=== PATIENT | male | born 1985 | race Caucasian/White ===

== ENCOUNTER 2022-08-30 09:25 | Outpatient (AMB) | payer BC, SELFPAY ==
--- NOTE | 2022-08-30 09:25 | MHC.PC.OV ---
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: Patient has dentist HPI f/u ADHD/ HTN HPI Details Patient is a 37 year-old male here today for follow-up visit.? Patient has a past medical history significant for ADHD, mild intermittent asthma. Concerns--> reports over the last several months having low sexual drive. He attributes this to COVID infection. Does report some low energy at times as well. He is interested in checking his testosterone ADHD:? Continues on p.r.n. use of Adderall 10 mg extended release with decent affect. 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 .? Denies any side effects of decreased appetite iron to her insomnia with medication. .? He does report having a stressful home life as he is recently moved and he has 3 young children. .. Asthma:? Has been well controlled with only seldom use of his albuterol inhaler.? Does report times at night having asthma symptoms.? No recent asthma exacerbations. .. Hypertension:? Has discontinued use of lisinopril on his own, blood pressures have been stable with better eating habits and lifestyle changes.? He is not monitoring his blood pressure at home.? ? [facility] Medical History Encounter for medication review Surgical History History of appendectomy History of inguinal hernia repair Family History Father Alive and well Mother Alive and well Social History Housing: House (Pt is in the process of moving. ) Alcohol intake: current Alcohol intake frequency: a few times a month Patient Tobacco Use Status: Never used Tobacco e-Cigarette/Vaping Use: Never Used Second Hand Smoke Exposure: No service: No Current occupational status: employed Cognitive needs: No Hearing needs: No Vision needs: No Questionnaire Thrive Questionnaire Date Thrive assessed: 06/20/22 BOBY-7 AMB Questionnaire BOBY-7 Date BOBY - 7 assessed: 06/20/22 Source: Developed by Drs. Mihir Tracy, Earline Macias, Abisai Zamarripa and colleagues, with an educational latonia from [employer]. ACT Questionnaire In the past 4 weeks, how much of the time did your asthma keep you from getting as much done at work, school or at home?: None of the time During the past 4 weeks, how often have you had shortness of breath?: 1-2 times a week During the past 4 weeks, how often did your asthma symptoms wake you up at night or earlier than usual in the morning?: Not at all During the past 4 weeks, how often have you had to use your rescue inhaler or nebulizer medication?: Not at all How would you rate your asthma control during the past 4 weeks?: Completely controlled ACT Interpretation: Negative Score: 24 Review of Systems Const Denies headache(s) Eyes Denies loss of vision ENT Denies vertigo, Denies dizziness, Denies headache(s) and Denies sore throat Card Denies chest pain, Denies leg edema and Denies lightheadedness Resp Denies cough, Denies hemoptysis and Denies wheezing GI Denies abdominal pain, Denies melena, Denies constipation, Denies diarrhea and Denies vomiting Denies dysuria, Denies urinary frequency and Denies urinary urgency Musc Denies arthralgias, Denies joint swelling, Denies numbness and Denies tingling Neuro Denies Abnormal speech present, Denies behavioral changes, Denies vertigo, Denies dizziness, Denies headache(s), Denies loss of vision, Denies memory loss, Denies numbness and Denies tingling Psych Denies anxiety, Denies behavioral changes, Denies depression, Denies memory loss and Denies panic attacks Miguel/Lymph Denies easy bleeding and Denies easy bruising Aller/Immun Denies wheezing Physical exam (Primary Care) Vital Signs: Last Vital Signs Pulse 84 08/30/22 09:26 BP 132/64 08/30/22 09:26 Pulse Ox 97 08/30/22 09:26 BMI result Body Mass Index 27.3 Tobacco/Smoking Status: Tobacco use Status Tobacco use date assessed 08/30/22 08/30/22 09:29 Patient Tobacco Use Status Never used Tobacco 08/30/22 09:29 e-Cigarette/Vaping Use Never Used 08/30/22 09:29 Thrive Assessment: Date of Thrive Assessment Date Thrive assessed 06/20/22 08/30/22 09:29 Const General: healthy appearing, no acute distress, alert and awake Nutritional Appearance: well nourished Orientation/consciousness: oriented to person, oriented to place and oriented to time HENMT Ears: TM's normal bilaterally General nose exam: Normal nasal mucous membranes and turbinates present Eyes Conjunctivae: conjunctivae normal Sclerae: sclerae normal Pupils: Equal, round and reactive pupils present Neck Neck: Yes no lymphadenopathy and Yes no JVD Thyroid: Thyroid normal Carotids: no bruits Resp Effort & Inspection: normal respiratory effort and not tachypneic Auscultation: no crackles, no rales, no rhonchi and no wheezes Cardio Rate: regular rate Rhythm: regular rhythm Heart sounds: no murmurs and normal S1 and S2 GI Palpation (GI): Soft to palpation, nontender, no hepatomegaly and no splenomegaly Auscultation: normal bowel sounds Skin General skin exam: no rashes or lesions noted and dry skin Neuro General: oriented to person, oriented to place and oriented to time Cranial nerves: Yes Equal, round and reactive pupils present Speech: No Abnormal speech present Gait exam (Neuro): Normal gait present Motor exam (neuro): no tremor noted Extrem Right upper extremity: full ROM Left upper extremity: full ROM Right lower extremity: full ROM; no edema Left lower extremity: full ROM; no edema Psych Mental Status: mental status grossly normal Speech and movement: Normal speech and movement present Affect: normal affect Attitude: cooperative Thought process: Normal thought process present Assessment and Plan Assessment & Plan (1) HTN (hypertension): Code(s): I10 - Essential (primary) hypertension Qualifiers: Hypertension type: primary hypertension Qualified Code(s): I10 - Essential (primary) hypertension Plan: Has discontinued using lisinopril, blood pressure has been stable without medication at this time. Will continue on lifestyle modifications on reducing his weight and salt in his diet. Goal blood pressures to remain below 140/90 (2) ADHD (attention deficit hyperactivity disorder): Code(s): F90.9 - Attention-deficit hyperactivity disorder, unspecified type Qualifiers: Attention deficit-hyperactivity disorder type: unspecified Qualified Code(s): F90.9 - Attention-deficit hyperactivity disorder, unspecified type Plan: Patient reports his ADHD has been stable, feels that his doses somewhat ineffective at times. Will increase his dose to 20 mg extended release (3) Asthma: Code(s): J45.909 - Unspecified asthma, uncomplicated Qualifiers: Asthma severity: mild Asthma persistence: intermittent Asthma complication type: uncomplicated Qualified Code(s): J45.20 - Mild intermittent asthma, uncomplicated Plan: Does report the need to use albuterol inhaler at times specially during warmer weather. Denies any acute exacerbations as of lately. (4) Low libido: Code(s): R68.82 - Decreased libido Plan: He reports he has been experiencing low libido over the last several months. He feels that his has happened before in the past status post COVID infection. Willing to try Viagra product to help with sexual dysfunction. Will test to stops wrong level Orders: Orders Testosterone, Free/Total Today R68.82 - Decreased libido Medications: New dextroamphetamine-amphetamine 20 mg ER (Adderall XR) Partial Fill upon patient request. 20 mg PO DAILY 28 days 28 caps 0RF F90.9 - Attention-deficit hyperactivity disorder, unspecified type sildenafil (Viagra) 100 mg PO DAILY 5 days PRN 5 tabs 0RF sexual activity R68.82 - Decreased libido Refilled albuterol sulfate 90 mcg/actuation 2 puffs PO Q4H 30 days PRN 8.5 grams 2RF shortness of breath or wheezing J45.20 - Mild intermittent asthma, uncomplicated Discontinued dextroamphetamine-amphetamine 10 mg ER (Adderall XR) Discontinued Reason: Doctor's Order 10 mg PO QAM 28 days 28 caps 0RF F90.9 - Attention-deficit hyperactivity disorder, unspecified type lisinopril Discontinued Reason: Doctor's Order 10 mg PO DAILY 90 days 90 tabs 1RF I10 - Essential (primary) hypertension Coding Level of Care Code Est Pt Level 4 (71063) Diagnoses HTN (hypertension) I10 Hypertension type: primary hypertension ADHD (attention deficit hyperactivity disorder) F90.9 Attention deficit-hyperactivity disorder type: unspecified Asthma J45.20 Asthma severity: mild Asthma persistence: intermittent Asthma complication type: uncomplicated Low libido R68.82
[2022-08-30 09:26] VITALS: BP 132/64; PULSE 84; O2SAT 97; BMI 27.3
== END 2022-08-30 09:47 | disposition home or self-care (01) ==
PROVIDERS: PCP Physician Assistant; Visit Provider Physician Assistant
DX: I10 Essential (primary) hypertension (principal); F90.9 Attention-deficit hyperactivity disorder, unspecified type; J45.20 Mild intermittent asthma, uncomplicated; R68.82 Decreased libido
CPT/HCPCS: 99214

== ENCOUNTER 2022-11-30 09:13 | Outpatient (AMB) | payer BC, SELFPAY ==
[2022-11-30 09:26] VITALS: BP 134/98; PULSE 95; RESP 17; O2SAT 97; BMI 27.5
--- NOTE | 2022-11-30 09:26 | A.OFFPC_ITS ---
Vital Signs 11/30/22 09:26 Height 5 ft 11 in Weight 197 lb 6 oz BMI 27.5 BP 134/98 H Blood Pressure Location Lt brachial Position Sitting Respiration 17 Pulse 95 Pulse Source Pulse Oximeter Pulse Oximetry (%) 97 Oxygen Delivery Method Room Air Intake Visit Reasons: f/u ADHD Intake Note: Patient is here to follow up on ADHD. 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 Accompanied by: Self / Same As Patient Allergies Penicillins [PENICILLINS] Allergy (Unknown, Verified 11/30/22 09:52) UNKNOWN Medication List - Last Reconciled 11/30/22 by Diallo Dudley PA-C albuterol sulfate 90 mcg/actuation 2 puffs PO Q4H PRN 30 days blood pressure test kit-large As directed dextroamphetamine-amphetamine 20 mg ER (Adderall XR) 20 mg PO DAILY 28 days sildenafil (Viagra) 100 mg PO DAILY PRN 5 days Tobacco use date assessed: 08/30/22 Dental Screening Dental Screen Date: 11/30/22 Did you have a dental visit in the last 12 months?: No Did you have a dental problem in the last 6 months where you did not have access to dental care?: No Was dental information given to patient?: Patient has dentist HPI f/u ADHD HPI Details Patient is a 37 year-old male here today for follow-up visit.? Patient has a past medical history significant for ADHD, mild intermittent asthma. Concerns--> ADHD:? Continues on p.r.n. use of Adderall 10 mg extended release with decent affect. 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 .? Denies any side effects of decreased appetite iron to her insomnia with medication. .? He does report having a stressful fernando e life as he is recently moved and he has 3 young children. No overt signs of abuse or misuse of the if any medication. SIGN DRUG CONTRACT TODAY- willing to do urine drug screen .. Asthma:? Has been well controlled with only seldom use of his albuterol inhaler.? Does report times at night having asthma symptoms.? No recent asthma exacerbations. .. Hypertension:? Has discontinued use of lisinopril on his own, unfortunately blood pressure elevated today in office. He is willing to restart lisinopril to control blood pressure. Advised to monitor blood pressure at home. [facility] Medical History Encounter for medication review Surgical History History of inguinal hernia repair History of appendectomy Family History Father Alive and well Mother Alive and well Social History Housing: House (Pt is in the process of moving. ) Alcohol intake: current Alcohol intake frequency: a few times a month Patient Tobacco Use Status: Never used Tobacco e-Cigarette/Vaping Use: Never Used Second Hand Smoke Exposure: No service: No Current occupational status: employed Cognitive needs: No Hearing needs: No Vision needs: No Questionnaire Thrive Questionnaire Date Thrive assessed: 06/20/22 BOBY-7 AMB Questionnaire BOBY-7 Date BOBY - 7 assessed: 06/20/22 Source: Developed by Drs. Mihir Tracy, Earline Macias, Abisai Zamarripa and colleagues, with an educational latonia from [employer]. Review of Systems Const Denies headache(s) Eyes Denies loss of vision ENT Denies vertigo, Denies dizziness, Denies headache(s) and Denies sore throat Card Denies chest pain, Denies leg edema and Denies lightheadedness Resp Denies cough, Denies hemoptysis and Denies wheezing GI Denies abdominal pain, Denies melena, Denies constipation, Denies diarrhea and Denies vomiting Denies dysuria, Denies urinary frequency and Denies urinary urgency Musc Denies arthralgias, Denies joint swelling, Denies numbness and Denies tingling Neuro Denies Abnormal speech present, Denies behavioral changes, Denies vertigo, Denies dizziness, Denies headache(s), Denies loss of vision, Denies memory loss, Denies numbness and Denies tingling Psych Denies anxiety, Denies behavioral changes, Denies depression, Denies memory loss and Denies panic attacks Miguel/Lymph Denies easy bleeding and Denies easy bruising Aller/Immun Denies wheezing Physical exam (Primary Care) Vital Signs: Last Vital Signs Pulse 95 11/30/22 09:26 Resp 17 11/30/22 09:26 BP 134/98 H 11/30/22 09:26 Pulse Ox 97 11/30/22 09:26 Oxygen Delivery Method Room Air 11/30/22 09:26 BMI result Body Mass Index 27.5 Tobacco/Smoking Status: Tobacco use Status Tobacco use date assessed 08/30/22 11/30/22 09:28 Patient Tobacco Use Status Never used Tobacco 11/30/22 09:28 e-Cigarette/Vaping Use Never Used 11/30/22 09:28 Thrive Assessment: Date of Thrive Assessment Date Thrive assessed 06/20/22 11/30/22 09:28 Const General: healthy appearing, no acute distress, alert and awake Nutritional Appearance: well nourished Orientation/consciousness: oriented to person, oriented to place and oriented to time HENMT Ears: TM's normal bilaterally General nose exam: Normal nasal mucous membranes and turbinates present Eyes Conjunctivae: conjunctivae normal Sclerae: sclerae normal Pupils: Equal, round and reactive pupils present Neck Neck: Yes no lymphadenopathy and Yes no JVD Thyroid: Thyroid normal Carotids: no bruits Resp Effort & Inspection: normal respiratory effort and not tachypneic Auscultation: no crackles, no rales, no rhonchi and no wheezes Cardio Rate: regular rate Rhythm: regular rhythm Heart sounds: no murmurs and normal S1 and S2 GI Palpation (GI): Soft to palpation, nontender, no hepatomegaly and no splenomegaly Auscultation: normal bowel sounds Skin General skin exam: no rashes or lesions noted and dry skin Neuro General: oriented to person, oriented to place and oriented to time Cranial nerves: Yes Equal, round and reactive pupils present Speech: No Abnormal speech present Gait exam (Neuro): Normal gait present Motor exam (neuro): no tremor noted Extrem Right upper extremity: full ROM Left upper extremity: full ROM Right lower extremity: full ROM; no edema Left lower extremity: full ROM; no edema Psych Mental Status: mental status grossly normal Speech and movement: Normal speech and movement present Affect: normal affect Attitude: cooperative Thought process: Normal thought process present Assessment and Plan Assessment & Plan (1) ADHD (attention deficit hyperactivity disorder): Code(s): F90.9 - Attention-deficit hyperactivity disorder, unspecified type Qualifiers: Attention deficit-hyperactivity disorder type: unspecified Qualified Code(s): F90.9 - Attention-deficit hyperactivity disorder, unspecified type Plan: As per HPI patient continues on Adderall with good affect on his attention and focus. 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 If he he reports no side effects from Adderall medications since as sleeping issues or decreased appetite. No overt signs of misuse or abuse of the medication. Today he signed drug contract and willing to do urine drug screen. (2) HTN (hypertension): Code(s): I10 - Essential (primary) hypertension Qualifiers: Hypertension type: primary hypertension Qualified Code(s): I10 - Essential (primary) hypertension Plan: Patient's blood pressure slightly elevated today in office. Has been on lisinopril which has worked for him in the past. He is willing to restart lisinopril to better control his blood pressure. Advised to monitor blood pressure at home with goal blood pressure to be below 140/90 Orders: Orders Drug Screen Urine Today F90.9 - Attention-deficit hyperactivity disorder, unspe cified type Medications: New lisinopril 10 mg PO DAILY 30 days 30 tabs 2RF I10 - Essential (primary) hypertension Refilled blood pressure test kit-large As directed 1 ea 0RF I10 - Essential (primary) hypertension Coding Level of Care Code Est Pt Level 4 (20955) Diagnoses Attention deficit hyperactivity disorder (ADHD), unspecified ADHD type F90.9 Attention deficit-hyperactivity disorder type: unspecified Primary hypertension I10 Hypertension type: primary hypertension
== END 2022-11-30 10:02 | disposition home or self-care (01) ==
PROVIDERS: PCP Physician Assistant; Visit Provider Physician Assistant
DX: F90.9 Attention-deficit hyperactivity disorder, unspecified type (principal); I10 Essential (primary) hypertension
CPT/HCPCS: 99214

== ENCOUNTER 2023-02-03 08:29 | Outpatient (REF) | payer BC, SELFPAY ==
[2023-02-03 09:20] LABS: Hematocrit 46.7 % (42.0-52.0); Hemoglobin 16.4 g/dl (14.0-18.0); Mean Corpuscular HGB Conc 35.1 g/dl (31.0-36.0); Mean Corpuscular Hemoglobin 32.7 pg (27.0-33.0); Mean Platelet Volume 8.5 fL (9.4-12.4); Platelet Count 312 X10*3/uL (160-400); Red Blood Count 5.02 X10*6/uL (4.60-5.80); Red Cell Distribution Width 11.9 % (11.0-16.0); White Blood Count 7.7 X10*3/uL (4.8-10.8)
[2023-02-03 09:29] LABS: Amphetamine Screen Urine POSITIVE (Not Detect); Barbiturates, Urine Not Detected (Not Detect); Benzodiazepines Screen Urine Not Detected (Not Detect); Cannabinoid Screen Urine POSITIVE (Not Detect); Cocaine Screen Urine Not Detected (Not Detect); Fentanyl, urine Not Detected (Not Detect); Opiate Screen Urine Not Detected (Not Detect); Phencyclidine Screen Urine Not Detected (Not Detect)
[2023-02-03 09:34] LABS: Alanine Aminotransferase 44 U/L (0-40); Albumin Level 4.8 g/dL (3.5-5.0); Alkaline Phosphatase 86 U/L (39-117); Anion Gap 19 (12-20); Aspartate Amino Transferase 38 U/L (5-37); Bilirubin Total 0.8 mg/dL (0.0-1.0); Blood Urea Nitrogen 16 mg/dL (9-16); Calcium 9.8 mg/dL (8.4-10.2); Carbon Dioxide 27 mmol/L (22-29); Chloride 103 mmol/L (96-108); Cholesterol 219 mg/dL (<200); Estimated Glomerular Filt Rate > 60; Glucose Fasting 82 mg/dL (60-99); HDL Cholesterol 88 mg/dL (>40); LDL Cholesterol Calculated 118 mg/dL (<100); Potassium 4.5 mmol/L (3.3-5.1); Sodium 144 mmol/L (135-145); Total Protein 7.9 g/dL (6.5-8.0); Triglycerides 68 mg/dL (<150)
[2023-02-03 09:44] LABS: Microalbum/Creatinine Ratio Ur 10.4 ug/mg cr (<30)
[2023-02-09 13:32] LABS: Testosterone, Free 68.6 pg/mL (35.0-155.0); Testosterone, Total 381 ng/dL (250-1100)
== END 2023-02-03 08:30 | disposition home or self-care (01) ==
LOC: HO.LAB 08:29
PROVIDERS: PCP Physician Assistant; Visit Provider Physician Assistant
DX: R68.82 Decreased libido (principal); F90.9 Attention-deficit hyperactivity disorder, unspecified type; I10 Essential (primary) hypertension; F15.20 Other stimulant dependence, uncomplicated
CPT/HCPCS: 80053; 80061; 80307; 82043; 82570; 84402; 84403; 85027

== ENCOUNTER 2023-04-13 09:47 | Outpatient (AMB) | payer BC, SELFPAY ==
--- NOTE | 2023-04-13 09:48 | MHC.PC.OV ---
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 Accompanied by: Self / Same As Patient Allergies Penicillins [PENICILLINS] Allergy (Unknown, Verified 04/13/23 10:01) UNKNOWN Medication List - Last Reconciled 04/13/23 by Diallo Dudley PA-C albuterol sulfate 90 mcg/actuation 2 puffs PO Q4H PRN 30 days blood pressure test kit-large As directed dextroamphetamine-amphetamine 20 mg ER (Adderall XR) 20 mg PO DAILY 28 days lisinopril 10 mg PO DAILY 30 days sildenafil (Viagra) 100 mg PO DAILY PRN 5 days Tobacco use date assessed: 04/13/23 Dental Screening Dental Screen Date: 04/13/23 Did you have a dental visit in the last 12 months?: Yes Did you have a dental problem in the last 6 months where you did not have access to dental care?: No Was dental information given to patient?: Patient has dentist HPI f/u HTN/ ADHD HPI Details Patient is a 38 year-old male here today for follow-up visit.? Patient has a past medical history significant for ADHD, mild intermittent asthma. ADHD:? Continues on p.r.n. use of Adderall 10 mg extended release with decent affect. 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 .? Denies any side effects of decreased appetite iron to her insomnia with medication. .? He does report having a stressful home life as he is recently moved and he has 3 young children. No overt signs of abuse or misuse of the if any medication. Has a drug contract signed, most recent drug urine screen appropriate. .. Asthma:? He reports his asthma has been a little worse since having COVID. He is interested in restarting a maintenance inhaler. Does report times at night having asthma symptoms.? No recent asthma exacerbations. .. Hypertension:? Has not been too compliant with daily use of his lisinopril. Today blood pressure elevated in office. He is willing to restart lisinopril on everyday basis to control blood pressure. Advised to monitor blood pressure at home. Laboratory Tests 02/03/23 02/03/23 08:52 08:59 AST 38 H ALT 44 H Cholesterol 219 H Ur Amphetamines Sc reen POSITIVE H U Marijuana (THC) Screen POSITIVE H [facility] Medical History Encounter for medication review Surgical History History of inguinal hernia repair History of appendectomy Family History Father Alive and well Mother Alive and well Social History Housing: House (Pt is in the process of moving. ) Alcohol intake: current Alcohol intake frequency: a few times a month Patient Tobacco Use Status: Never used Tobacco e-Cigarette/Vaping Use: Never Used Second Hand Smoke Exposure: No service: No Current occupational status: employed Cognitive needs: No Hearing needs: No Vision needs: No Questionnaire PHQ-9 Over the last 2 weeks, how often have you been bothered by any of the following problems? 1. Little interest or pleasure in doing things: not at all 2. Feeling down, depressed, or hopeless: not at all 3. Trouble falling or staying asleep, or sleeping too much: not at all 4. Feeling tired or having little energy: not at all 5. Poor appetite or overeating: not at all 6. Feeling bad about yourself - or that you are a failure or have let yourself or your family down: not at all 7. Trouble concentrating on things, such as reading the newspaper or watching television: not at all 8. Moving or speaking so slowly that other people could have noticed. Or the opposite - being so fidgety or restless that you have been moving around a lot more than usual: not at all 9. Thoughts that you would be better off or of hurting yourself in some way: not at all Total score: 0 Depression Screening Interpretation: Negative Depression Screening Done: Yes 58209 - PHQ-9 Billing: Yes Source: Developed by Drs. Mihir Tracy, Earline Macias, Abisai Zamarripa and colleagues, with an educational latonia from [employer]. Thrive Questionnaire Date Thrive assessed: 04/13/23 I am a: Patient What is your living situation today?: I have a steady place to live Within the past 12 months, did the food you bought not last and you didn't have the money to get more?: Never true Within the past 12 months, did you worry whether your food would run out before you got money to buy more?: Never true Do you have trouble paying for medicines?: No Do you have trouble getting transportation to medical appointments?: No Do you have trouble paying your heating and electricity bill?: No Do you have trouble taking care of your child, family member or friend?: No Do you have trouble with day-to-day activities such as bathing, preparing meals, shopping, managing finances, etc.?: No Are you currently unemployed and looking for a job?: No Are you interested in more education?: No Please select the resources that you would like help with: None Currently or been in a relationship where the following occur: no concerns reported THRIVE Score: 0 AUDIT C Alcohol Use Questionnaire (AUDIT-C) 1. How often do you have a drink containing alcohol?: Monthly or less 3. How often do you have six or more drinks on one occasion?: Never Total Score: 1 BOBY-7 AMB Questionnaire BOBY-7 Date BOBY - 7 assessed: 04/13/23 Feeling nervous, anxious, or on edge: 0 = Not at all Not being able to stop or control worryin = Not at all Worrying too much about different things: 0 = Not at all Trouble relaxin = Not at all Being so restless that it is hard to sit still: 0 = Not at all Becoming easily annoyed or irritable: 0 = Not at all Feeling afraid as if something awful might happen: 0 = Not at all Total BOBY-7 score (0-4 normal; 5-9 mild; 10-14 moderate; 15-21 severe): 0 Source: Developed by Drs. Mihir Tracy, Earline Macias, Abisai Zamarripa and colleagues, with an educational latonia from [employer]. BOBY-7 Assessment Billing BOBY-7 Assessment Tool: BOBY-7 Assessment 93607 Review of Systems Const Denies headache(s) Eyes Denies loss of vision ENT Denies vertigo, Denies dizziness, Denies headache(s) and Denies sore throat Card Denies chest pain, Denies leg edema and Denies lightheadedness Resp Denies cough, Denies hemoptysis and Denies wheezing GI Denies abdominal pain, Denies melena, Denies constipation, Denies diarrhea and Denies vomiting Denies dysuria, Denies urinary frequency and Denies urinary urgency Musc Denies arthralgias, Denies joint swelling, Denies numbness and Denies tingling Neuro Denies Abnormal speech present, Denies behavioral changes, Denies vertigo, Denies dizziness, Denies headache(s), Denies loss of vision, Denies memory loss, Denies numbness and Denies tingling Psych Denies anxiety, Denies behavioral changes, Denies depression, Denies memory loss and Denies panic attacks Miguel/Lymph Denies easy bleeding and Denies easy bruising Aller/Immun Denies wheezing Physical exam (Primary Care) Vital Signs: Last Vital Signs Pulse 88 04/13/23 09:49 BP 142/98 H 04/13/23 09:49 Pulse Ox 100 04/13/23 09:49 Oxygen Delivery Method Room Air 04/13/23 09:49 BMI result Body Mass Index 28.0 Tobacco/Smoking Status: Tobacco use Status Tobacco use date assessed 04/13/23 04/13/23 09:53 Patient Tobacco Use Status Never used Tobacco 04/13/23 09:48 e-Cigarette/Vaping Use Never Used 04/13/23 09:48 PHQ-9: PHQ-9 Score PHQ-9: Total score 0 04/13/23 10:04 Depression Screening Interpretation: Negative Thrive Assessment: Date of Thrive Assessment Date Thrive assessed 04/13/23 04/13/23 09:53 Currently or been in a relationship where the following occur: no concerns reported Const General: healthy appearing, no acute distress, alert and awake Nutritional Appearance: well nourished Orientation/consciousness: oriented to person, oriented to place and oriented to time HENMT Ears: TM's normal bilaterally General nose exam: Normal nasal mucous membranes and turbinates present Eyes Conjunctivae: conjunctivae normal Sclerae: sclerae normal Pupils: Equal, round and reactive pupils present Neck Neck: Yes no lymphadenopathy and Yes no JVD Thyroid: Thyroid normal Carotids: no bruits Resp Effort & Inspection: normal respiratory effort and not tachypneic Auscultation: no crackles, no rales, no rhonchi and no wheezes Cardio Rate: regular rate Rhythm: regular rhythm Heart sounds: no murmurs and normal S1 and S2 GI Palpation (GI): Soft to palpation, nontender, no hepatomegaly and no splenomegaly Auscultation: normal bowel sounds Skin General skin exam: no rashes or lesions noted and dry skin Neuro General: oriented to person, oriented to place and oriented to time Cranial nerves: Yes Equal, round and reactive pupils present Speech: No Abnormal speech present Gait exam (Neuro): Normal gait present Motor exam (neuro): no tremor noted Extrem Right upper extremity: full ROM Left upper extremity: full ROM Right lower extremity: full ROM; no edema Left lower extremity: full ROM; no edema Psych Mental Status: mental status grossly normal Speech and movement: Normal speech and movement present Affect: normal affect Attitude: cooperative Thought process: Normal thought process present Assessment and Plan Assessment & Plan (1) ADHD (attention deficit hyperactivity disorder): Code(s): F90.9 - Attention-deficit hyperactivity disorder, unspecified type Qualifiers: Attention deficit-hyperactivity disorder type: unspecified Qualified Code(s): F90.9 - Attention-deficit hyperactivity disorder, unspecified type Plan: As per HPI patient continues on Adderall with good affect on his attention and focus. 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 If he he reports no side effects from Adderall medications since as sleeping issues or decreased appetite. No overt signs of misuse or abuse of the medication. (2) HTN (hypertension): Code(s): I10 - Essential (primary) hypertension Qualifiers: Hypertension type: primary hypertension Qualified Code(s): I10 - Essential (primary) hypertension Plan: Patient's blood pressure slightly elevated today in office. Has been on lisinopril which has worked for him in the past. He is willing to restart lisinopril to better control his blood pressure. Advised to monitor blood pressure at home with goal blood pressure to be below 140/90 (3) Elevated liver enzymes: Code(s): R74.8 - Abnormal levels of other serum enzymes Plan: Noted elevated liver enzymes on most recent labs. He reports he was on a cruise and overdid it with alcohol. Has upcoming ultrasound of his liver to evaluate. Will recheck his liver enzymes (4) Borderline high cholesterol: Code(s): E78.9 - Disorder of lipoprotein metabolism, unspecified Plan: Noted borderline high cholesterol and most recent labs again did report dietary indiscretion before his labs. Will recheck fasting lipid panel before his upcoming annual physical. Orders: Orders Comprehensive [place]. Panel Fast Today I10 - Essential (primary) hypertension Microalbumin, Random (w Creat) Today I10 - Essential (primary) hypertension Lipid Panel Today E78.9 - Disorder of lipoprotein metabolism, unspecified Medications: New fluticasone propion-salmeterol 100-50 mcg/dose (Wixela Inhub) 1 inh inhalation BID 30 days 60 ea 3RF J45.20 - Mild intermittent asthma, uncomplicated Refilled albuterol sulfate 90 mcg/actuation 2 puffs PO Q4H 30 days PRN 8.5 grams 3RF shortness of breath or wheezing J45.20 - Mild intermittent asthma, uncomplicated Coding Level of Care Code Est Pt Level 4 (06618) Diagnoses Attention deficit hyperactivity disorder (ADHD), unspecified ADHD type F90.9 Attention deficit-hyperactivity disorder type: unspecified Primary hypertension I10 Hypertension type: primary hypertension Elevated liver enzymes R74.8 Borderline high cholesterol E78.9 Additional Codes BOBY-7 Assessment Billing - BOBY-7 Assessment Tool: BOBY-7 Assessment 73126 ([id number])
[2023-04-13 09:49] VITALS: BP 142/98; PULSE 88; O2SAT 100; BMI 28.0
== END 2023-04-13 10:13 | disposition home or self-care (01) ==
PROVIDERS: PCP Physician Assistant; Visit Provider Physician Assistant
DX: I10 Essential (primary) hypertension (principal); F90.9 Attention-deficit hyperactivity disorder, unspecified type; R74.8 Abnormal levels of other serum enzymes; E78.9 Disorder of lipoprotein metabolism, unspecified
CPT/HCPCS: 99214

== ENCOUNTER 2023-05-25 08:31 | Outpatient (REF) | payer BC, SELFPAY ==
--- NOTE | ~2023-05-25 | US_ITS ---
EXAMINATION: US ABDOMEN LIMITED CLINICAL INFORMATION: Abnormal levels of other serum enzymes. COMPARISON: CT abdomen and pelvis 09/04/2018. TECHNIQUE: Real-time imaging of the right upper quadrant abdominal viscera. Limited visualization due to bowel gas. FINDINGS: PANCREAS: Limited visualization of pancreatic tail and head. Imaged portion of pancreatic body is unremarkable. LIVER: Increased hepatic parenchymal heterogeneity and echogenicity could be associated with hepatocellular disease/hepatic steatosis and substantially limits visualization. Correlation with liver function tests and clinical exam recommended to determine further management. GALLBLADDER: No gallstones. No gallbladder wall thickening. COMMON BILE DUCT: Normal in caliber measuring 0.3 cm in diameter. RIGHT KIDNEY: No hydronephrosis. No renal calculi. Limited visualization. The kidney measures 10.9 cm in maximum dimension. FREE FLUID: None. US/US abdomen limited IMPRESSION: Increased hepatic parenchymal heterogeneity and echogenicity could be associated with hepatocellular disease/hepatic steatosis and substantially limits visualization. Correlation with liver function tests and clinical exam recommended to determine further management.
== END 2023-05-25 08:32 | disposition home or self-care (01) ==
LOC: HO.HMGCX 08:31
PROVIDERS: PCP Physician Assistant; Visit Provider Physician Assistant
DX: R74.8 Abnormal levels of other serum enzymes (principal)
CPT/HCPCS: 76705

== ENCOUNTER 2023-09-07 15:14 | Outpatient (AMB) | payer BC, SELFPAY ==
--- NOTE | 2023-09-07 15:16 | A.OFFPC_ITS ---
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 Accompanied by: Self / Same As Patient Allergies Penicillins [PENICILLINS] Allergy (Unknown, Verified 09/07/23 15:21) UNKNOWN Medication List - Last Reconciled 09/07/23 by Diallo Dudley PA-C albuterol sulfate 90 mcg/actuation 2 puffs PO Q4H PRN 30 days blood pressure test kit-large As directed dextroamphetamine-amphetamine 20 mg ER (Adderall XR) 20 mg PO DAILY 28 days fluticasone propion-salmeterol 100-50 mcg/dose (Wixela Inhub) 1 inh inhalation BID 30 days lisinopril 10 mg PO DAILY 30 days sildenafil (Viagra) 100 mg PO DAILY PRN 5 days Tobacco use date assessed: 04/13/23 Dental Screening Dental Screen Date: 04/13/23 HPI ANNUAL HPI Details Patient is a 38 year-old male here today for for routine annual physical.? Patient has a past medical history significant for ADHD, mild intermittent asthma. ADHD:? Continues on p.r.n. use of Adderall 20 mg extended release with decent affect. 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 .? Denies any side effects of decreased appetite iron to her insomnia with medication. .? He does report having a stressful fernando e life as he is recently moved and he has 3 young children. No overt signs of abuse or misuse of the if any medication. Has a drug contract signed, most recent drug urine screen appropriate. .. Asthma:? He reports his asthma is fairly well controlled. Has not been using a maintenance inhaler. He does report needing to use his rescue inhaler at nights on occasion. PLAN: Will restart using a maintenance inhaler for better control of his asthma symptoms. .. Hypertension:? Today blood pressure elevated in office. Will increase his lisinopril dose to 20 mg daily. Vaccine: UTD with COVID, flu, T[facility]ap [facility] Medical History Encounter for medication review Surgical History History of inguinal hernia repair History of appendectomy Family History Father Alive and well Mother Alive and well Social History (Updated 09/07/23 @ 15:26 by Diallo Dudley PA-C) Housing: House (Pt is in the process of moving. ) Alcohol intake: current Alcohol intake frequency: a few times a month Patient Tobacco Use Status: Never used Tobacco e-Cigarette/Vaping Use: Never Used Second Hand Smoke Exposure: No service: No Current occupational status: employed Cognitive needs: No Hearing needs: No Vision needs: No Questionnaire Thrive Questionnaire Date Thrive assessed: 04/13/23 BOBY-7 AMB Questionnaire BOBY-7 Date BOBY - 7 assessed: 04/13/23 Source: Developed by Drs. Mihir Tracy, Earline Macias, Abisai Zamarripa and colleagues, with an educational latonia from [employer]. Review of Systems Const Denies body aches, Denies chills, Denies excessive sweating, Denies fatigue, Denies fever(s) and Denies headache(s) Eyes Denies blurry vision ENT Denies dysphagia, Denies vertigo, Denies dizziness, Denies headache(s), Denies hearing loss and Denies tinnitus Card Denies chest pain, Denies chest pain with activity, Denies syncope, Denies irregular heart rhythm and Denies dyspnea Resp Denies chest congestion, Denies cough, Denies hemoptysis, Denies dyspnea and Denies wheezing GI Denies abdominal pain, Denies melena, Denies hematochezia, Denies coffee ground emesis, Denies dysphagia, Denies diarrhea, Denies nausea and Denies vomiting Denies difficulty urinating, Denies dysuria, Denies urinary frequency, Denies urinary hesitancy and Denies urinary urgency Musc Denies arthralgias, Denies limited range of motion, Denies muscle cramps and Denies muscle weakness Skin/Breast Denies rash and Denies skin ulcer Neuro Denies Abnormal speech present, Denies confusion, Denies vertigo, Denies dizziness, Denies syncope, Denies headache(s), Denies memory loss and Denies seizure-like activity Psych Denies anxiety, Denies confusion, Denies depression, Denies memory loss, Denies panic attacks and Denies paranoia Endo Denies excessive sweating, Denies fatigue, Denies flushing, Denies polydipsia and Denies polyuria Aller/Immun Denies wheezing Physical exam (Primary Care) Vital Signs: Last Vital Signs Pulse 105 H 09/07/23 15:19 BP 162/108 H 09/07/23 15:19 Pulse Ox 98 09/07/23 15:19 Oxygen Delivery Method Room Air 09/07/23 15:19 BMI result Body Mass Index 25.9 Tobacco/Smoking Status: Tobacco use Status Tobacco use date assessed 04/13/23 09/07/23 15:17 Patient Tobacco Use Status Never used Tobacco 09/07/23 15:17 e-Cigarette/Vaping Use Never Used 09/07/23 15:17 Thrive Assessment: Date of Thrive Assessment Date Thrive assessed 04/13/23 09/07/23 15:17 Const General: cooperative, comfortable, no acute distress, alert and awake; No confusion Orientation/consciousness: oriented to person, oriented to place, patient oriented x3 and No confusion HENMT Head: Yes normocephalic Ears: external ears normal and TM's normal bilaterally Face and sinus: No sinus tenderness Mouth: Normal oral and palatal mucosa present and tongue normal Teeth and gingiva: dentition normal and gingiva normal Throat: Yes posterior oropharynx normal, Yes tonsils normal and Yes uvula midline Eyes Conjunctivae: conjunctivae normal Sclerae: sclerae normal Pupils: Equal, round and reactive pupils present EOM: EOMs intact bilaterally Direct Ophthalmoscopy: No no photophobia Neck Neck: Yes no lymphadenopathy, No tender and Yes no JVD Thyroid: Thyroid normal Carotids: no bruits Chest Chest palpation & inspection: no tenderness Resp Effort & Inspection: normal respiratory effort, no audible wheezes, not labored and no stridor Auscultation: no crackles, no rales, no rhonchi and no wheezes Cardio Jugular venous distension: no JVD Rate: regular rate, not bradycardic and not tachycardic Rhythm: regular rhythm Bruits: no carotid bruits Peripheral pulses: Peripheral pulses 2+ throughout GI Inspection: Yes normal to inspection, No abdominal wall ecchymosis and No visible herniation Palpation (GI): Soft to palpation, nontender, no guarding, not rigid and No hepatosplenomegaly present Auscultation: normoactive bowel sounds General: Yes no CVA tenderness Back/Spine/Pelvis Back: no CVA tenderness and No back tenderness Cervical Spine: cervical ROM normal Thoracic/Lumbar Spine: thoracic and lumbar spine normal to inspection, straight leg raise negative bilaterally, No thoraco-lumbar ROM limited and No lumbar spinal tenderness Skin Lesions: no lesions Rashes: no rashes Wounds: no wounds Neuro General: oriented to person, oriented to place, patient oriented x3, CN's II-XI intact bilaterally and No confusion Cranial nerves: Yes Equal, round and reactive pupils present and Yes Normal accommodation reflex present Cognition (Neuro): normal cognition Speech: No Abnormal speech present Gait exam (Neuro): Normal gait present Motor exam (neuro): 5/5 motor strength present throughout Extrem Right upper extremity: full ROM; no cyanosis Left upper extremity: full ROM; no cyanosis Right lower extremity: no edema Left lower extremity: no edema Psych Appearance: grossly normal Mental Status: mental status grossly normal Affect: normal affect Attitude: cooperative Thought process: Normal thought process present Assessment and Plan Assessment & Plan (1) Annual physical exam: Code(s): Z00.00 - Encounter for general adult medical examination without abnormal findings (2) ADHD (attention deficit hyperactivity disorder): Code(s): F90.9 - Attention-deficit hyperactivity disorder, unspecified type Qualifiers: Attention deficit-hyperactivity disorder type: unspecified Qualified Code(s): F90.9 - Attention-deficit hyperactivity disorder, unspecified type Plan: As per HPI patient continues on Adderall with good affect on his attention and focus. 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 If he he reports no side effects from Adderall medications since as sleeping issues or decreased appetite. No overt signs of misuse or abuse of the medication. (3) HTN (hypertension): Code(s): I10 - Essential (primary) hypertension Qualifiers: Hypertension type: primary hypertension Qualified Code(s): I10 - Essential (primary) hypertension Plan: Patient's blood pressure elevated today in office. Will increase his dose of lisinopril to 20 mg. Advised to monitor blood pressure at home with goal blood pressure to be below 140/90. (4) Elevated liver enzymes: Code(s): R74.8 - Abnormal levels of other serum enzymes Plan: Noted elevated liver enzymes on most recent labs. He reports he was on a cruise and overdid it with alcohol. Has upcoming ultrasound of his liver to evaluate. Will recheck his liver enzymes (5) Borderline high cholesterol: Code(s): E78.9 - Disorder of lipoprotein metabolism, unspecified Plan: Noted borderline high cholesterol and most recent labs again did report dietary indiscretion before his labs. Medications: New lisinopril 20 mg PO DAILY 90 days 90 tabs 1RF I10 - Essential (primary) hypertension Refilled fluticasone propion-salmeterol 100-50 mcg/dose (Wixela Inhub) 1 inh inhalation BID 30 days 60 ea 3RF J45.20 - Mild intermittent asthma, uncomplicated dextroamphetamine-amphetamine 20 mg ER (Adderall XR) Partial Fill upon patient request. 20 mg PO DAILY 28 days 28 caps 0RF F90.9 - Attention-deficit hyperactivity disorder, unspecified type albuterol sulfate 90 mcg/actuation 2 puffs PO Q4H 30 days PRN 8.5 grams 3RF shortness of breath or wheezing J45.20 - Mild intermittent asthma, uncomplicated Discontinued lisinopril Discontinued Reason: Doctor's Order 10 mg PO DAILY 30 days 30 tabs 3RF I10 - Essential (primary) hypertension Patient Instructions: Goal: Blood pressure to be below 140/90 Barriers: Adherence to physical activity and healthy eating habits Coding Level of Care Code Est Pt Prev Care 40-64y(45352) Diagnoses Annual physical exam Z00.00 Attention deficit hyperactivity disorder (ADHD), unspecified ADHD type F90.9 Attention deficit-hyperactivity disorder type: unspecified Primary hypertension I10 Hypertension type: primary hypertension Elevated liver enzymes R74.8 Borderline high cholesterol E78.9
[2023-09-07 15:19] VITALS: BP 162/108; PULSE 105; O2SAT 98; BMI 25.9
[2023-09-07 15:36] VITALS: BP 140/94
== END 2023-09-07 15:48 | disposition home or self-care (01) ==
PROVIDERS: PCP Physician Assistant; Visit Provider Physician Assistant
DX: Z00.00 Encounter for general adult medical examination without abnormal findings (principal); F90.9 Attention-deficit hyperactivity disorder, unspecified type; I10 Essential (primary) hypertension; R74.8 Abnormal levels of other serum enzymes; E78.9 Disorder of lipoprotein metabolism, unspecified
CPT/HCPCS: 99396